=== PATIENT | male | born 1980 | race Caucasian/White ===

== ENCOUNTER 2023-05-20 12:28 | Emergency (ER) | payer OTHER | END 2023-05-20 13:40 | disposition home or self-care (01) | LOC: CSHERS 12:28 | DX: Z45.2 Encounter for adjustment and management of vascular access device (principal); I10 Essential (primary) hypertension | CPT/HCPCS: 71046 ==

== ENCOUNTER 2023-07-16 14:59 | Emergency (ER) | payer OTHER | END 2023-07-16 16:02 | disposition left against medical advice (07) | LOC: CSHERS 14:59 | DX: Z53.21 Procedure and treatment not carried out due to patient leaving prior to being seen by health care provider (principal) ==

== ENCOUNTER 2023-07-17 20:01 | Emergency (ER) | payer OTHER ==
[2023-07-17 22:18] LABS: Hematocrit 39.9 % (38.8-50.0); Hemoglobin 13.7 g/dL (13.5-17.5); Mean Corpuscular HGB CONC 34.3 g/dL (32.0-36.0); Mean Corpuscular Hemoglobin 29.4 pg (27.0-33.0); Mean Corpuscular Volume 85.6 fl (81.2-95.1); Mean Platelet Volume 8.8 fl (7.4-10.4); Platelet Count 152 10x3/uL (150-450); RBC Distribution Width 15.5 % (11.5-14.5); Red Blood Cell (RBC) Count 4.66 10x6/uL (4.32-5.72); White Blood Cell (WBC) Count 7.3 10x3/uL (3.5-10.5)
[2023-07-17 22:24] LABS: ALT (SGPT) 30 U/L (8-55); AST (SGOT) 45 U/L (5-34); Albumin 3.9 g/dL (3.5-5.0); Alkaline Phosphatase 75 U/L (40-110); Anion Gap 16 mmol/L (10-20); BUN (Urea Nitrogen) 15 mg/dL (8.9-20.6); Bilirubin, Total 0.3 mg/dL (0.2-1.2); Calc. Creatinine Clearance 0 mL/min (70-130); Calcium 9.2 mg/dL (7.8-10.44); Carbon Dioxide 22 mmol/L (22-29); Chloride 100 mmol/L (98-107); Estimated GFR 116; Globulin 3.1 g/dL (2.4-3.5); Glucose 112 mg/dL (70-105); Potassium 3.7 mmol/L (3.5-5.1); Sodium 134 mmol/L (136-145)
[2023-07-17 22:44] LABS: MDiff Complete? YES
[2023-07-17 22:48] LABS: Eosinophils 1 % (0-10); Lymphocytes 30 % (21-51); Monocytes 22 % (0-10); Neutrophil 46 % (42-75)
[2023-07-17 22:49] LABS: RBC Morph Comment Within Normal Limits
[2023-07-17 22:50] LABS: Platelet Adequacy Comment Platelets Normal
== END 2023-07-18 01:00 | disposition home or self-care (01) ==
LOC: CSHERS 20:01
DX: L98.9 Disorder of the skin and subcutaneous tissue, unspecified (principal); T82.594A Other mechanical complication of infusion catheter, initial encounter; I10 Essential (primary) hypertension
CPT/HCPCS: 71045; 80053; 85025

== ENCOUNTER 2023-08-25 10:07 | Emergency (ER) | payer SELFPAY ==
[~2023-08-25 10:07] MED LIST: Iopamidol 370 76% 100 ML VIAL ONE
[2023-08-25] MEDS ORDERED: diphenhydrAMINE 50 MG/ML VIAL ONE (11:11)
[2023-08-25] MEDS ORDERED: Famotidine/PF 20 mg/2ml Vial ONE (11:11)
[2023-08-25] MEDS ORDERED: Morphine 4 MG/ML VIAL ONE (11:11)
[2023-08-25] MEDS ORDERED: methylPREDNISolone Sod Succ/PF 125 MG/2 ML VIAL ONE (11:11)
[2023-08-25] MEDS ORDERED: Morphine 2 MG/ML VIAL ONE (11:11)
[2023-08-25 11:16] LABS: #Basophils 0.1 10x3/uL (0.0-0.2); #Eosinphils 0.1 10x3/uL (0.0-0.5); #Monocytes 1.2 10x3/uL (0.0-1.1); #Neutrophils 6.8 10x3/uL (1.5-8.4); %Basophils 0.6 % (0.0-2.0); %Eosinophils 1.3 % (0.0-6.0); %Lymphocytes 12.6 % (18.0-47.0); %Monocytes 12.3 % (0.0-10.0); %Neutrophils 72.4 % (40.0-75.0); Hematocrit 43.3 % (38.8-50.0); Hemoglobin 14.6 g/dL (13.5-17.5); Mean Corpuscular HGB CONC 33.7 g/dL (32.0-36.0); Mean Corpuscular Hemoglobin 28.7 pg (27.0-33.0); Mean Corpuscular Volume 85.1 fl (81.2-95.1); Mean Platelet Volume 9.2 fl (7.4-10.4); Platelet Count 172 10x3/uL (150-450); RBC Distribution Width 13.8 % (11.5-14.5); Red Blood Cell (RBC) Count 5.09 10x6/uL (4.32-5.72); White Blood Cell (WBC) Count 9.5 10x3/uL (3.5-10.5)
[2023-08-25 11:26] LABS: Troponin I Less than 0.010 ng/mL (< 0.028)
[2023-08-25 11:28] LABS: PTT 31.6 sec (22.0-33.0); Prothrombin Time 10.6 sec (9.5-12.1)
[2023-08-25 11:29] LABS: ALT (SGPT) 32 U/L (8-55); AST (SGOT) 50 U/L (5-34); Alkaline Phosphatase 109 U/L (40-110); Anion Gap 17 mmol/L (10-20); BUN (Urea Nitrogen) 12 mg/dL (8.9-20.6); Bilirubin, Total 0.3 mg/dL (0.2-1.2); Calc. Creatinine Clearance 0 mL/min (70-130); Calcium 8.9 mg/dL (7.8-10.44); Carbon Dioxide 22 mmol/L (22-29); Chloride 101 mmol/L (98-107); Estimated GFR 120; Glucose 116 mg/dL (70-105); Lipase 18 U/L (8-78); Potassium 4.1 mmol/L (3.5-5.1); Sodium 136 mmol/L (136-145)
== END 2023-08-25 13:30 | disposition home or self-care (01) ==
LOC: CSHERS 10:07
DX: C18.9 Malignant neoplasm of colon, unspecified (principal); R07.89 Other chest pain; I10 Essential (primary) hypertension
CPT/HCPCS: 71275; 74177; 80053; 83690; 84484; 85025; 85610; 85730; 93005; 96374; 96375; J1200; J2270; J2272; J2930; Q9967; S0028

== ENCOUNTER 2023-08-28 19:02 | Emergency (ER) | payer SELFPAY ==
[2023-08-28] MEDS ORDERED: methylPREDNISolone Sod Succ/PF 125 MG/2 ML VIAL ONE (19:42)
[2023-08-28] MEDS ORDERED: HYDROmorphone 0.5 MG/0.5 ML SYRINGE ONE ×2 (19:42→20:15)
[2023-08-28] MEDS ORDERED: Ketorolac Tromethamine 30 MG/ML VIAL ONE (19:42)
[2023-08-28] MEDS ORDERED: Ketamine In 0.9 % NaCl 50 MG/5 ML SYRINGE ONE (22:21)
== END 2023-08-28 22:52 | disposition home or self-care (01) ==
LOC: CSHERS 19:02
DX: C18.9 Malignant neoplasm of colon, unspecified (principal); R06.00 Dyspnea, unspecified; I10 Essential (primary) hypertension
CPT/HCPCS: 71045; 93005; 93010; 96361; 96374; 96375; J1170; J1885; J2930; J3490

== ENCOUNTER 2023-09-25 17:59 | Emergency (ER) | payer OTHER, SELFPAY ==
[2023-09-25] MEDS ORDERED: diphenhydrAMINE 50 MG/ML VIAL ONE (18:38)
[2023-09-25] MEDS ORDERED: Lorazepam 2 MG/ML VIAL ONE (18:38)
[2023-09-25] MEDS ORDERED: methylPREDNISolone Sod Succ 40 MG VIAL ONE (18:38)
[2023-09-25] MEDS ORDERED: Famotidine/PF 20 mg/2ml Vial ONE (18:39)
[2023-09-25 20:05] LABS: #Eosinphils 0.1 10x3/uL (0.0-0.5); #Monocytes 0.4 10x3/uL (0.0-1.1); #Neutrophils 2.5 10x3/uL (1.5-8.4); %Basophils 0.3 % (0.0-2.0); %Eosinophils 1.8 % (0.0-6.0); %Monocytes 10.3 % (0.0-10.0); %Neutrophils 61.1 % (40.0-75.0); Hematocrit 35.6 % (38.8-50.0); Mean Corpuscular HGB CONC 33.7 g/dL (32.0-36.0); Mean Corpuscular Hemoglobin 28.3 pg (27.0-33.0); Mean Platelet Volume 8.9 fl (7.4-10.4); Platelet Count 118 10x3/uL (150-450); Red Blood Cell (RBC) Count 4.24 10x6/uL (4.32-5.72)
[2023-09-25 20:14] LABS: ALT (SGPT) 41 U/L (8-55); AST (SGOT) 51 U/L (5-34); Albumin 3.8 g/dL (3.5-5.0); Alkaline Phosphatase 176 U/L (40-110); Anion Gap 14 mmol/L (10-20); BUN (Urea Nitrogen) 10 mg/dL (8.9-20.6); Bilirubin, Total 0.4 mg/dL (0.2-1.2); Calc. Creatinine Clearance 0 mL/min (70-130); Calcium 9.1 mg/dL (7.8-10.44); Carbon Dioxide 25 mmol/L (22-29); Chloride 103 mmol/L (98-107); Estimated GFR 117; Glucose 120 mg/dL (70-105); Lipase 17 U/L (8-78); Potassium 3.6 mmol/L (3.5-5.1); Protein, Total 6.8 g/dL (6.0-8.3); Sodium 138 mmol/L (136-145)
[2023-09-25 20:20] LABS: Troponin I Less than 0.010 ng/mL (< 0.028)
[2023-09-25 20:43] LABS: Platelet Adequacy Comment Appears Decreased
== END 2023-09-25 23:48 | disposition home or self-care (01) ==
LOC: CSHERS 17:59
DX: F43.0 Acute stress reaction (principal); F41.1 Generalized anxiety disorder; C18.9 Malignant neoplasm of colon, unspecified; I10 Essential (primary) hypertension; F17.210 Nicotine dependence, cigarettes, uncomplicated; Z79.899 Other long term (current) drug therapy
CPT/HCPCS: 71045; 71275; 74177; 80053; 83690; 84484; 85025; 85379; 93005; 96374; 96375; J1200; J2060; J2920; Q9967; S0028

== ENCOUNTER 2023-10-20 16:59 | Emergency (ER) | payer BC, OTHER ==
[2023-10-20] MEDS ORDERED: Ketamine In 0.9 % NaCl 50 MG/5 ML SYRINGE ONE (18:17)
== END 2023-10-20 20:17 | disposition home or self-care (01) ==
LOC: CSHERS 16:59
DX: R10.9 Unspecified abdominal pain (principal)
CPT/HCPCS: 96374; 96375; J1642; J3490

== ENCOUNTER 2023-10-20 23:34 | Inpatient (IN) | payer BC ==
[2023-10-21] MEDS ORDERED: HYDROmorphone 0.5 MG/0.5 ML SYRINGE ONE (05:32)
[2023-10-21] MEDS ORDERED: Ketamine In 0.9 % NaCl 50 MG/5 ML SYRINGE ONE (06:13)
[2023-10-21] MEDS ORDERED: KETAMINE 100 MG/ML (5ML VIAL) SLOW IVP SCH (06:15)
[2023-10-21] MEDS ORDERED: Ketamine In 0.9 % NaCl 50 MG/5 ML SYRINGE SLOW IVP SCH (06:15)
[2023-10-21 07:50] VITALS: BP 124/83; TEMP 97.4
[2023-10-21] MEDS ORDERED: Morphine 2 MG/ML VIAL SLOW IVP PRN (08:24)
[2023-10-21] MEDS ORDERED: Lorazepam 2 MG/ML VIAL ONE (08:30)
[2023-10-21] MEDS: Lorazepam 2 MG/ML VIAL SLOW IVP PRN ×2 (08:36→12:12)
[2023-10-21] MEDS ORDERED: Enoxaparin 40 MG (0.4 mL) SYRINGE SC SCH (09:00)
[2023-10-21] MEDS ORDERED: Mineral Oil ENEMA PR PRN (09:26)
[2023-10-21 09:30] VITALS: BMI 25.0
[2023-10-21] MEDS ORDERED: Ondansetron PF 4 MG/2 ML Vial IVP PRN (09:32)
== END 2023-10-21 13:00 | disposition hospice, inpatient (51) | DRG 376 ==
LOC: CSHERS 23:34 → CSHERHOLD 10-21 05:40 → CSHIMCU 10-21 09:25
PROVIDERS: ADMIT Family Medicine; ATTEND Family Medicine
DX: C18.9 Malignant neoplasm of colon, unspecified (principal); G89.3 Neoplasm related pain (acute) (chronic); Z51.5 Encounter for palliative care; Z66 Do not resuscitate; F41.9 Anxiety disorder, unspecified; K76.0 Fatty (change of) liver, not elsewhere classified; R73.03 Prediabetes; G51.0 Bell's palsy; Z88.8 Allergy status to other drugs, medicaments and biological substances; R10.9 Unspecified abdominal pain
CPT/HCPCS: 96374; 96375; 99284; J1170; J1642; J1650; J2060; J2272; J3490

== ENCOUNTER 2023-10-21 13:23 | Inpatient (IN) | payer BC, OTHER ==
[2023-10-21 13:43] VITALS: BMI 25.0
[2023-10-21] MEDS ORDERED: Ondansetron PF 4 MG/2 ML Vial IVP PRN (14:00)
[2023-10-21] MEDS ORDERED: Scopolamine 1 mg/72 hour Patch TOP PRN (14:00)
[2023-10-21] MEDS ORDERED: Acetaminophen 325 MG TAB PO PRN (14:00)
[2023-10-21] MEDS ORDERED: fentaNYL 100 mcg/hour Patch TD SCH (15:00)
[2023-10-21] MEDS: METHadone HCl 10 MG TAB PO SCH (15:04)
[2023-10-21] MEDS: Morphine 10 MG/ML VIAL SLOW IVP PRN ×2 (16:56→21:17)
[2023-10-21] MEDS: Senokot S 8.6-50 MG TAB PO SCH (21:18)
[2023-10-21] MEDS: Morphine 4 MG/ML VIAL SLOW IVP PRN (23:28)
[2023-10-22] MEDS: METHadone HCl 10 MG TAB PO SCH ×3 (00:30→15:56)
[2023-10-22] MEDS: Morphine 4 MG/ML VIAL SLOW IVP PRN ×3 (05:45→09:18)
[2023-10-22] MEDS: Senokot S 8.6-50 MG TAB PO SCH ×2 (07:41→20:16)
[2023-10-22] MEDS: Lisinopril 10 MG TAB PO SCH (07:42)
[2023-10-22] MEDS: Lorazepam 2 MG/ML VIAL SLOW IVP PRN ×3 (09:18→20:15)
[2023-10-22] MEDS ORDERED: Morphine 4 MG/ML VIAL SLOW IVP PRN (10:16)
[2023-10-22] MEDS ORDERED: Glycopyrrolate 0.4 MG/ 2 ML VIAL SLOW IVP SCH (11:00)
[2023-10-22] MEDS: Glycopyrrolate 0.2 MG/ML 5 ML SYRINGE SLOW IVP SCH ×2 (11:33→17:15)
[2023-10-22] MEDS: Morphine 10 MG/ML VIAL SLOW IVP PRN ×3 (12:52→23:31)
[2023-10-22] MEDS ORDERED: Morphine IR Tab 15 MG TAB PO PRN (14:53)
[2023-10-22] MEDS: Morphine IR Tab 15 MG TAB PO PRN ×5 (17:14→22:35)
[2023-10-23] MEDS: METHadone HCl 10 MG TAB PO SCH ×3 (00:08→16:42)
[2023-10-23] MEDS: Glycopyrrolate 0.2 MG/ML 5 ML SYRINGE SLOW IVP SCH (00:15)
[2023-10-23] MEDS: Glycopyrrolate 0.4 MG/ 2 ML VIAL SLOW IVP SCH ×2 (02:34→09:23)
[2023-10-23] MEDS: Morphine 10 MG/ML VIAL SLOW IVP PRN ×11 (03:11→23:09)
[2023-10-23] MEDS: Lorazepam 2 MG/ML VIAL SLOW IVP PRN ×3 (09:13→17:05)
[2023-10-23] MEDS: Senokot S 8.6-50 MG TAB PO SCH ×2 (09:14→21:04)
[2023-10-23] MEDS: Lisinopril 10 MG TAB PO SCH (09:33)
[2023-10-23] MEDS ORDERED: FENTANYL TD SCH (11:00)
[2023-10-23] MEDS ORDERED: Fleet Saline Enema 133 ML BOT PR PRN (14:31)
[2023-10-23] MEDS ORDERED: Ketamine In 0.9 % NaCl 50 MG/5 ML SYRINGE SLOW IVP SCH (15:00)
[2023-10-23] MEDS: Ketamine In 0.9 % NaCl 50 MG/5 ML SYRINGE SLOW IVP SCH (21:04)
[2023-10-24] MEDS: METHadone HCl 10 MG TAB PO SCH ×4 (01:11→23:14)
[2023-10-24] MEDS: Ketamine In 0.9 % NaCl 50 MG/5 ML SYRINGE SLOW IVP SCH ×7 (01:16→23:35)
[2023-10-24] MEDS: Lisinopril 10 MG TAB PO SCH (08:23)
[2023-10-24] MEDS: Senokot S 8.6-50 MG TAB PO SCH ×2 (08:24→20:04)
[2023-10-24] MEDS: Lorazepam 2 MG/ML VIAL SLOW IVP PRN ×3 (08:47→21:01)
[2023-10-24] MEDS: Morphine 10 MG/ML VIAL SLOW IVP PRN ×3 (09:14→11:22)
[2023-10-24] MEDS ORDERED: Nicotine 21 MG PATCH TOP SCH (16:00)
[2023-10-24] MEDS: Morphine IR Tab 15 MG TAB PO PRN ×3 (16:05→22:19)
[2023-10-24 21:26] VITALS: TEMP 98.4
[2023-10-24] MEDS ORDERED: hydrOXYzine 25 MG TAB PO SCH (23:15)
[2023-10-25] MEDS ORDERED: Lorazepam 2 MG/ML VIAL SLOW IVP SCH (01:30)
[2023-10-25] MEDS ORDERED: Gabapentin 400 MG CAP PO SCH (02:30)
[2023-10-25] MEDS: Ketamine In 0.9 % NaCl 50 MG/5 ML SYRINGE SLOW IVP SCH ×2 (03:02→08:30)
[2023-10-25] MEDS: Lisinopril 10 MG TAB PO SCH (08:23)
[2023-10-25] MEDS: Senokot S 8.6-50 MG TAB PO SCH (08:23)
[2023-10-25] MEDS: METHadone HCl 10 MG TAB PO SCH ×2 (08:24→15:26)
[2023-10-25 08:25] VITALS: BP 139/95
[2023-10-25] MEDS: Lorazepam 2 MG/ML VIAL SLOW IVP PRN (09:40)
[2023-10-25] MEDS: Morphine IR Tab 15 MG TAB PO PRN ×2 (09:40→10:40)
[2023-10-25] MEDS: Morphine 10 MG/ML VIAL SLOW IVP PRN ×3 (11:16→14:12)
[2023-10-25] MEDS ORDERED: Ketamine In 0.9 % NaCl 50 MG/5 ML SYRINGE SLOW IVP SCH (13:00)
== END 2023-10-25 17:00 | disposition left against medical advice (07) | DRG 951 ==
LOC: CSHIMCU 13:23
PROVIDERS: ADMIT Family Medicine; ATTEND Family Medicine
DX: Z51.5 Encounter for palliative care (principal); C18.9 Malignant neoplasm of colon, unspecified; I10 Essential (primary) hypertension; Z66 Do not resuscitate; G89.3 Neoplasm related pain (acute) (chronic); F17.210 Nicotine dependence, cigarettes, uncomplicated; F22 Delusional disorders; Z88.8 Allergy status to other drugs, medicaments and biological substances
CPT/HCPCS: J2060; J2270; J2405; J3490

== ENCOUNTER 2023-11-03 06:00 | Inpatient (IN) | payer BC ==
[2023-11-03] MEDS ORDERED: Ziprasidone 20 MG VIAL ONE ×3 (06:10→16:17)
[2023-11-03] MEDS ORDERED: Sterile Water 10 ML ONE ×3 (06:11→16:18)
[2023-11-03] MEDS ORDERED: Haloperidol Lactate 5 MG/ML VIAL ONE (06:33)
[2023-11-03] MEDS ORDERED: KETAMINE 100 MG/ML (5ML VIAL) ONE (06:41)
[2023-11-03] MEDS ORDERED: Lorazepam 2 MG/ML VIAL ONE ×3 (07:33→15:45)
[2023-11-03 08:02] LABS: White Blood Cell (WBC) Count 9.3 10x3/uL (3.5-10.5)
[2023-11-03 08:03] LABS: %Basophils 0.4 % (0.0-2.0); %Eosinophils 1.1 % (0.0-6.0); %Lymphocytes 9.4 % (18.0-47.0); %Monocytes 13.2 % (0.0-10.0); %Neutrophils 75.4 % (40.0-75.0); Hematocrit 36.7 % (38.8-50.0); Mean Corpuscular HGB CONC 32.7 g/dL (32.0-36.0); Mean Corpuscular Hemoglobin 27.2 pg (27.0-33.0); Mean Corpuscular Volume 83.2 fl (81.2-95.1); Mean Platelet Volume 8.6 fl (7.4-10.4); Platelet Count 189 10x3/uL (130-400); RBC Distribution Width 15.1 % (11.5-14.5); Red Blood Cell (RBC) Count 4.41 10x6/uL (4.32-5.72)
[2023-11-03 08:04] LABS: #Eosinphils 0.1 10x3/uL (0.0-0.5); #Monocytes 1.2 10x3/uL (0.0-1.1)
[2023-11-03 08:22] LABS: ALT (SGPT) 53 U/L (8-55); AST (SGOT) 115 U/L (5-34); Albumin 3.4 g/dL (3.5-5.0); Alkaline Phosphatase 326 U/L (40-110); Anion Gap 16 mmol/L (10-20); BUN (Urea Nitrogen) 12 mg/dL (8.9-20.6); Bilirubin, Total 0.7 mg/dL (0.2-1.2); Calc. Creatinine Clearance 0 mL/min (70-130); Calcium 8.9 mg/dL (7.8-10.44); Carbon Dioxide 26 mmol/L (22-29); Chloride 96 mmol/L (98-107); Estimated GFR 117; Globulin 3.7 g/dL (2.4-3.5); Glucose 103 mg/dL (70-105); Protein, Total 7.1 g/dL (6.0-8.3); Sodium 134 mmol/L (136-145)
[2023-11-03] MEDS ORDERED: fentaNYL 50 mcg/mL 1 mL Vial ONE (14:24)
[2023-11-03] MEDS ORDERED: HYDROmorphone 0.5 MG/0.5 ML SYRINGE ONE (14:46)
[2023-11-03] MEDS ORDERED: Ketamine In 0.9 % NaCl 50 MG/5 ML SYRINGE ONE ×2 (15:09→16:28)
[2023-11-03] MEDS ORDERED: OLANZapine 10 MG VIAL IM SCH (17:30)
[2023-11-03] MEDS ORDERED: Midazolam HCl 10 mg/2 ml Vial ONE (18:24)
[2023-11-03] MEDS ORDERED: diphenhydrAMINE 50 MG/ML VIAL ONE (18:27)
[2023-11-04] MEDS ORDERED: diphenhydrAMINE 50 MG/ML VIAL ONE ×2 (02:04→08:46)
[2023-11-04] MEDS ORDERED: Lorazepam 2 MG/ML VIAL ONE ×4 (02:37→18:59)
[2023-11-04] MEDS ORDERED: Ziprasidone 20 MG VIAL ONE ×5 (03:10→18:50)
[2023-11-04] MEDS ORDERED: Morphine 4 MG/ML VIAL ONE (04:12)
[2023-11-04] MEDS ORDERED: HYDROmorphone 0.5 MG/0.5 ML SYRINGE ONE ×3 (07:52→20:03)
[2023-11-04] MEDS ORDERED: Sterile Water 10 ML ONE ×3 (07:52→18:50)
[2023-11-04] MEDS: Nicotine 21 MG PATCH TOP SCH (20:45)
[2023-11-04] MEDS: fentaNYL 75 mcg/hour Patch TD SCH (20:45)
[2023-11-04] MEDS: NS 0.9% w/ 20 MEQ KCL 1,000 ML/1,000 ML BAG IV SCH (22:31)
[2023-11-04] MEDS: Dexamethasone 10 MG/ML VIAL SLOW IVP SCH (23:37)
[2023-11-05] MEDS: Dexmedetomidine In 0.9 % NaCl 100 ML IVPB SCH (01:15)
[2023-11-05] MEDS: HYDROmorphone 0.5 MG/0.5 ML SYRINGE SLOW IVP SCH ×2 (01:23→06:01)
[2023-11-05] MEDS: Lorazepam 2 MG/ML VIAL SLOW IVP SCH ×2 (04:34→17:53)
[2023-11-05] MEDS: Morphine 4 MG/ML VIAL SLOW IVP SCH (04:34)
[2023-11-05] MEDS: METHadone HCl 10 MG TAB PO SCH (06:01)
[2023-11-05] MEDS: OLANZapine 10 MG VIAL IM SCH (06:04)
[2023-11-05] MEDS: Lorazepam 2 MG/ML VIAL SLOW IVP PRN ×2 (10:39→19:41)
[2023-11-05] MEDS: NS 0.9% w/ 20 MEQ KCL 1,000 ML/1,000 ML BAG IV SCH (10:40)
[2023-11-05 12:19] LABS: Amphetamine Not Detected (NotDetected); Barbiturates Screen Not Detected (NotDetected); Benzodiazepine Screen Detected (NotDetected); Cocaine Metabolite Screen Not Detected (NotDetected); Methadone Detected (NotDetected); Methamphetamine Not Detected (NotDetected); Opiate Screen Detected (NotDetected); Oxycodone Screen Detected (NotDetected); Phencyclidine (PCP) Not Detected (NotDetected); THC/Cannabinoid Screen Detected (NotDetected); Tricyclic Screen Not Detected (NotDetected)
[2023-11-05] MEDS: Nicotine 14 MG PATCH TOP SCH (15:37)
[2023-11-05] MEDS: Morphine IR 10 MG/5 ML UDCUP PO PRN (15:56)
[2023-11-05] MEDS ORDERED: Haloperidol Lactate 5 MG/ML VIAL SLOW IVP PRN (16:29)
[2023-11-05] MEDS: diphenhydrAMINE 50 MG/ML VIAL IVP SCH ×2 (16:36→22:56)
[2023-11-05] MEDS: Ziprasidone 20 MG VIAL IM SCH (16:36)
[2023-11-05] MEDS: Sterile Water 10 ML VIAL FS SCH (16:36)
[2023-11-05] MEDS: Haloperidol Lactate 5 MG/ML VIAL SLOW IVP SCH ×2 (17:50→22:57)
[2023-11-05] MEDS ORDERED: diphenhydrAMINE 50 MG/ML VIAL IVP SCH (18:45)
[2023-11-06] MEDS: HYDROmorphone 0.5 MG/0.5 ML SYRINGE SLOW IVP SCH (03:08)
[2023-11-06] MEDS: Morphine 4 MG/ML VIAL SLOW IVP SCH (07:27)
[2023-11-06] MEDS: Dexamethasone 4 mg/ml Vial SLOW IVP SCH (10:30)
[2023-11-06] MEDS ORDERED: RisperDAL Oral Solution 1 MG/ML UDCUP PO PRN (12:00)
[2023-11-06] MEDS: QUEtiapine 25 MG TAB PO SCH ×2 (14:50→20:31)
[2023-11-06] MEDS: RisperDAL Oral Solution 1 MG/ML UDCUP PO SCH (20:01)
[2023-11-06] MEDS: Diazepam 10 MG/2 ML SYRINGE IVP SCH (22:30)
[2023-11-07] MEDS: Morphine 4 MG/ML VIAL SLOW IVP SCH (03:09)
[2023-11-07] MEDS: Ziprasidone 20 MG VIAL IM SCH (03:12)
[2023-11-07] MEDS: Dexmedetomidine In 0.9 % NaCl 100 ML IVPB SCH (03:15)
[2023-11-07] MEDS: Sterile Water 10 ML ONE (03:21)
[2023-11-07] MEDS ORDERED: hydrOXYzine 10 MG/5 ML SYRUP UDCUP PO PRN (08:37)
[2023-11-07] MEDS: fentaNYL 50 mcg/hour Patch TD SCH (10:25)
[2023-11-07] MEDS: Lactulose 20 GM (30 mL) UDCUP PO SCH ×2 (13:23→21:13)
[2023-11-07] MEDS ORDERED: Ondansetron PF 4 MG/2 ML Vial IVP PRN (15:27)
[2023-11-07] MEDS ORDERED: Hyoscyamine SL 0.125 MG TAB SL PRN (15:27)
[2023-11-07] MEDS ORDERED: Ondansetron ODT 4 MG TAB PO PRN (15:27)
[2023-11-07] MEDS: Scopolamine 1 mg/72 hour Patch TD PRN (15:49)
[2023-11-07] MEDS: Diazepam 10 MG/2 ML SYRINGE IVP PRN (15:50)
[2023-11-07] MEDS ORDERED: Morphine IR 10 MG/5 ML UDCUP SL PRN (16:36)
[2023-11-07] MEDS: chlorproMAZINE HCl 50 MG/2 ML AMP IM PRN (19:37)
[2023-11-07] MEDS: HYDROmorphone 0.5 MG/0.5 ML SYRINGE SLOW IVP SCH (20:41)
[2023-11-08] MEDS: HYDROmorphone 0.5 MG/0.5 ML SYRINGE SLOW IVP SCH (03:21)
[2023-11-08] MEDS: Bisacodyl 10 MG SUPP PR PRN (03:36)
[2023-11-08] MEDS ORDERED: Lactulose 10 GM/15 ML Oral Solution PR SCH (06:00)
[2023-11-08] MEDS ORDERED: HYDROmorphone 0.5 MG/0.5 ML SYRINGE SLOW IVP SCH (10:00)
[2023-11-08] MEDS ORDERED: HYDROmorphone 0.5 MG/0.5 ML SYRINGE SLOW IVP PRN (10:00)
[2023-11-08] MEDS: HYDROmorphone 2 MG/ML VIAL SLOW IVP SCH (10:17)
[2023-11-08] MEDS: fentaNYL 50 mcg/hour Patch TD SCH (10:26)
[2023-11-08] MEDS: Acetaminophen 650 MG Suppository PR PRN (10:30)
[2023-11-08] MEDS: Lactated Ringer's 1,000 ML IV SCH (11:18)
[2023-11-08] MEDS: Ziprasidone 20 MG VIAL IM SCH ×2 (11:32→20:33)
[2023-11-08] MEDS: HYDROmorphone 2 MG/ML VIAL SLOW IVP PRN (12:53)
[2023-11-08] MEDS: Midazolam HCl 2 mg/2 ml Vial SLOW IVP PRN (20:13)
[2023-11-08] MEDS: Dexamethasone 4 mg/ml Vial SLOW IVP SCH (20:14)
[2023-11-08] MEDS: Sterile Water 10 ML VIAL FS SCH (20:52)
[2023-11-09] MEDS: fentaNYL 75 mcg/hour Patch TD SCH (15:58)
[2023-11-09] MEDS: HYDROmorphone 2 MG/ML VIAL SLOW IVP PRN ×2 (16:25→20:10)
[2023-11-09] MEDS: Ziprasidone 20 MG VIAL IM SCH (20:44)
[2023-11-10] MEDS: Morphine IR 10 MG/5 ML UDCUP PO PRN (02:54)
[2023-11-10] MEDS: Dexamethasone 4 mg/ml Vial SLOW IVP SCH (07:56)
[2023-11-10] MEDS: Morphine 10 MG/ML VIAL SLOW IVP PRN ×2 (11:12→13:22)
[2023-11-10] MEDS: FENTANYL TD SCH (12:03)
[2023-11-10] MEDS ORDERED: Lorazepam 2 MG/ML VIAL SLOW IVP PRN (17:30)
[2023-11-10] MEDS: Scopolamine 1 mg/72 hour Patch TD SCH (17:59)
[2023-11-11] MEDS: Midazolam HCl 2 mg/2 ml Vial SLOW IVP PRN (08:24)
[2023-11-11] MEDS: Sterile Water 10 ML VIAL FS SCH (08:25)
[2023-11-11] MEDS: Lactated Ringer's 1,000 ML IV SCH ×2 (13:16→15:33)
[2023-11-11] MEDS: Atropine Sulfate 1% Ophth Soln 5 ml Bottle SL SCH (17:40)
[2023-11-11] MEDS: Albumin 25% 25 GM (100 mL) BOT IVPB SCH (17:40)
[2023-11-12 04:11] VITALS: TEMP 101.2
[2023-11-12] MEDS: Morphine 10 MG/ML VIAL SLOW IVP SCH (07:15)
[2023-11-12 09:20] VITALS: BP 139/95
[2023-11-12 10:19] VITALS: BMI 22.2
== END 2023-11-12 11:08 | disposition expired | DRG 54 ==
LOC: CSHERS 06:00 → CSHIMCU 11-04 19:33 → EEVIPCON 11-04 19:33
PROVIDERS: ADMIT Family Medicine; ATTEND Hospitalist
PROC: 30233J1 Transfusion of Nonautologous Serum Albumin into Peripheral Vein, Percutaneous Approach (ICD-10-PCS; principal; 2023-11-11)
DX: C79.31 Secondary malignant neoplasm of brain (principal); G93.41 Metabolic encephalopathy; I61.9 Nontraumatic intracerebral hemorrhage, unspecified; C18.9 Malignant neoplasm of colon, unspecified; C78.7 Secondary malignant neoplasm of liver and intrahepatic bile duct; R18.8 Other ascites; G89.3 Neoplasm related pain (acute) (chronic); Z88.8 Allergy status to other drugs, medicaments and biological substances; Z91.041 Radiographic dye allergy status; Z79.899 Other long term (current) drug therapy; I10 Essential (primary) hypertension; Z98.890 Other specified postprocedural states; F41.9 Anxiety disorder, unspecified; F17.210 Nicotine dependence, cigarettes, uncomplicated; Z66 Do not resuscitate; R06.89 Other abnormalities of breathing; Z51.5 Encounter for palliative care
CPT/HCPCS: 36416; 70450; 71045; 80053; 80306; 82140; 83605; 85025; 94760; 94762; 96372; 96374; 96375; 96376; J1100; J1170; J1200; J1630; J2060; J2250; J2270; J3010; J3230; J3360; J3480; J3486; J3490; J7120; P9047